=== PATIENT | female | born 1985 ===

== ENCOUNTER 2023-09-29 20:21 | Inpatient (IN) | payer MEDICAID, OTHER ==
[~2023-09-29] VITALS: Ht 160 cm; Wt 87.6 kg
[2023-09-29] MEDS ORDERED: diazePAM 5 MG TAB PO ONE (21:45)
[2023-09-29] MEDS ORDERED: KETOROLAC TROMETH 30 MG/ML 1ML VIAL IV ONE (21:45)
[2023-09-29] MEDS ORDERED: HYDROmorphone HCL 2 MG/ML VL/or syr IV ONE ×2 (21:45→23:45)
[2023-09-29] MEDS ORDERED: DexAMETHasone SOD PHOS 10MG/1ML VIAL INJ IV ONE (21:45)
[2023-09-30] VITALS (9 sets, daily range): BP systolic 109–118; BP diastolic 64–69; PULSE 72–83; RESP 16–20; TEMP 98–98.4; O2SAT 94–97
[2023-09-30] MEDS ORDERED: MORPHINE SULFATE INJ 2 MG/ml SYRG IV PRN
[2023-09-30] MEDS ORDERED: ONDANSETRON HCL 4 MG/2 ML VIAL IV PRN
[2023-09-30] MEDS ORDERED: ACETAMINOPHEN 325 MG TAB PO PRN
[2023-09-30] MEDS ORDERED: NITROGLYCERIN 0.4 MG SL TAB SL PRN
[2023-09-30 00:39] LABS: Basophils # (auto) 0 10 ^3/uL (0-0.2); Basophils % (auto) 0.5 % (0.0-2.0); Eosinophils # (auto) 0 10 ^3/uL (0-0.8); Eosinophils % (auto) 0.2 % (0.0-7.0); Hematocrit 40.1 % (36.0-46.0); Lymphocytes # (auto) 0.9 10 ^3/uL (0.4-5.4); Lymphocytes % (auto) 9.5 % (10.0-50.0); Mean Corpuscular Hemoglobin 25.8 pg (28.0-32.0); Mean Corpuscular Hgb Conc. 32.5 g/dL (32.0-36.0); Mean Corpuscular Volume 79.3 fL (80.0-100.0); Monocytes # (auto) 0.1 10 ^3/uL (0-1.3); Monocytes % (auto) 1.5 % (0.0-12.0); Neutrophils # (auto) 8.3 10 ^3/uL (1.6-8.6); Neutrophils % (auto) 88.3 % (37.0-80.0); Red Blood Cells 5.05 10^6/uL (4.0-5.20); Red Cell Distribution Width 13.6 % (11.8-14.3); White Blood Cell 9.4 10^3/uL (4.4-10.8)
[2023-09-30 00:57] LABS: Alanine Aminotransferase 15 U/L (7-40); Alkaline Phosphatase 64 U/L (46-116); Calcium 8.6 mg/dL (8.7-10.4); Chloride 108 mmol/L (98-107)
[2023-09-30 00:58] LABS: Anion Gap 6 (5-15); Aspartate Aminotransferase 13 U/L (13-40); BUN/Creatinine Ratio 13.9 (10.0-20.0); Bilirubin, Total 0.4 mg/dL (0.2-1.0); Blood Urea Nitrogen 11 mg/dL (9-23); Carbon Dioxide 23 mmol/L (20-30); Glucose 125 mg/dL (74-106); Potassium 4.1 mmol/L (3.5-5.1); Sodium 137 mmol/L (136-145); Total Protein 6.6 g/dL (5.7-8.2)
[2023-09-30 03:43] LABS: Basophils # (auto) 0 10 ^3/uL (0-0.2); Basophils % (auto) 0.2 % (0.0-2.0); Eosinophils # (auto) 0 10 ^3/uL (0-0.8); Hemoglobin 13.3 g/dL (12.2-16.2); Lymphocytes # (auto) 0.7 10 ^3/uL (0.4-5.4); Monocytes # (auto) 0.1 10 ^3/uL (0-1.3); Neutrophils # (auto) 8.3 10 ^3/uL (1.6-8.6); Neutrophils % (auto) 91.5 % (37.0-80.0); White Blood Cell 9.1 10^3/uL (4.4-10.8)
[2023-09-30 03:45] LABS: Erythrocyte Sedimentation Rate 12 mm/hr (0-20)
[2023-09-30 03:46] LABS: Alanine Aminotransferase 16 U/L (7-40); Albumin 4.2 g/dL (3.2-4.8); Alkaline Phosphatase 67 U/L (46-116); Anion Gap 8 (5-15); Aspartate Aminotransferase 12 U/L (13-40); BUN/Creatinine Ratio 15.9 (10.0-20.0); Bilirubin, Total 0.4 mg/dL (0.2-1.0); Blood Urea Nitrogen 13 mg/dL (9-23); Calcium 8.8 mg/dL (8.7-10.4); Carbon Dioxide 23 mmol/L (20-30); Chloride 107 mmol/L (98-107); Glucose 160 mg/dL (74-106); Hematocrit 39.5 % (36.0-46.0); Lymphocytes % (auto) 7.5 % (10.0-50.0); Mean Corpuscular Hemoglobin 26.6 pg (28.0-32.0); Mean Corpuscular Hgb Conc. 33.7 g/dL (32.0-36.0); Monocytes % (auto) 0.8 % (0.0-12.0); Nucleated Red Blood Cells % 0.1 %; Red Blood Cells 4.99 10^6/uL (4.0-5.20); Red Cell Distribution Width 13.5 % (11.8-14.3); Sodium 138 mmol/L (136-145); Total Protein 6.9 g/dL (5.7-8.2)
[2023-09-30] MEDS ORDERED: TRAM50TA2 PO (03:52)
[2023-09-30] MEDS ORDERED: IBUP1TAB5 PO (03:52)
[2023-09-30] MEDS ORDERED: GABA-1308 PO (03:53)
[2023-09-30] MEDS: MORPHINE SULFATE INJ 2 MG/ml SYRG IV PRN ×3 (05:01→21:23)
[2023-09-30] MEDS: HYDROcodone-ACET 5/325MG TAB PO PRN ×2 (08:48→23:41)
[2023-09-30 09:23] LABS: Amphetamine Screen, Urine Neg (NEGATIVE); Barbiturate Scree,Urine Neg (NEGATIVE); Benzodiazephine Screen, Urine Neg (NEGATIVE); Cocaine Screen, Urine Neg (NEGATIVE); Opiate Scree,Urine Pos (NEGATIVE); Phencyclidine Screen, Urine Neg (NEGATIVE)
[2023-09-30 09:24] LABS: Cannabinoid Screen, Urine Neg (NEGATIVE)
[2023-09-30 09:30] LABS: Urine Bacteria NONE SEEN /hpf (None Seen); Urine Blood Negative /uL (Negative); Urine Clarity Clear (Clear); Urine Color Yellow (Yellow); Urine Mucus FEW (None Seen); Urine Protein, UAD Negative (Negative); Urine Specific Gravity 1.025 (1.001-1.035); Urine Urobilinogen Normal (Negative); Urine WBC 1 /hpf (0 - 5); Urine pH 6.5 (5.0-8.0)
[2023-09-30] MEDS ORDERED: methylPREDNISolone SOD SUCC 125 MG/2 ML VL IV ONE (10:15)
[2023-09-30] MEDS: BACLOFEN 10 MG TAB PO SCH ×2 (15:15→22:41)
[2023-09-30] MEDS: methylPREDNISolone SOD SUCC 125 MG/2 ML VL IV SCH (21:13)
[2023-10-01] VITALS (7 sets, daily range): BP systolic 111–123; BP diastolic 64–80; PULSE 69–102; RESP 18–22; TEMP 97.7–98.3; O2SAT 93–97
[2023-10-01] MEDS: BACLOFEN 10 MG TAB PO SCH ×3 (05:26→21:11)
[2023-10-01] MEDS: methylPREDNISolone SOD SUCC 125 MG/2 ML VL IV SCH ×3 (05:27→21:10)
[2023-10-01] MEDS: MORPHINE SULFATE INJ 2 MG/ml SYRG IV PRN (05:39)
[2023-10-01] MEDS: HYDROcodone-ACET 5/325MG TAB PO PRN ×2 (08:28→13:12)
[2023-10-01] MEDS: PANTOPRAZOLE 40 MG TAB PO SCH (09:41)
[2023-10-01] MEDS ORDERED: DOCUSATE SOD 100 MG CAP PO ONE (17:45)
[2023-10-01] MEDS: DOCUSATE SOD 100 MG CAP PO SCH (21:10)
[2023-10-01] MEDS ORDERED: GABAPENTIN 100 MG CAP PO SCH ×2 (22:00→22:45)
[2023-10-01] MEDS: GABAPENTIN 100 MG CAP PO SCH (22:44)
[2023-10-02] MEDS: HYDROcodone-ACET 5/325MG TAB PO PRN ×3 (04:35→14:02)
[2023-10-02 04:58] VITALS: BP 117/74; PULSE 70; RESP 18; TEMP 98.2; O2SAT 96
[2023-10-02] MEDS: BACLOFEN 10 MG TAB PO SCH ×2 (05:49→13:20)
[2023-10-02 08:00] VITALS: PULSE 57; RESP 20; O2SAT 98
[2023-10-02 09:28] VITALS: BP 114/62; PULSE 57; RESP 20; TEMP 98.2; O2SAT 98
[2023-10-02] MEDS: GABAPENTIN 100 MG CAP PO SCH (09:50)
[2023-10-02] MEDS: PANTOPRAZOLE 40 MG TAB PO SCH (09:51)
[2023-10-02] MEDS: DOCUSATE SOD 100 MG CAP PO SCH (09:51)
[2023-10-02 13:38] VITALS: BP 115/74; PULSE 62; RESP 20; TEMP 98.3; O2SAT 98
== END 2023-10-02 15:00 | disposition home or self-care (01) | DRG 347 ==
LOC: ER 20:21 → EDBD 20:21 → OVERFLOW 23:58 → WEST WING 09-30 03:23
PROVIDERS: ADMIT Internal Medicine; ATTEND Student in an Organized Health Care Education/Training Program
DX: M51.17 Intervertebral disc disorders with radiculopathy, lumbosacral region (principal); E66.01 Morbid (severe) obesity due to excess calories; Z68.34 Body mass index [BMI] 34.0-34.9, adult; Z82.3 Family history of stroke
CPT/HCPCS: 36415; 72131; 72148; 80053; 80307; 81001; 83036; 85025; 85652; 86141; 86431; 96374; 96375; 96376; 97163; G0378; J1100; J1885